=== PATIENT | female | born 1965 | race Caucasian/White ===

== ENCOUNTER 2022-08-17 09:25 | Outpatient (REF) | payer OTHER, SELFPAY ==
--- NOTE | ~2022-08-17 | XR_ITS ---
EXAMINATION: XR STANDING AP KNEES XR KNEE, LEFT CLINICAL INFORMATION: Knee pain COMPARISON: None TECHNIQUE: Standing AP view of both knees is performed. Additional lateral view and axial patella view of the left knee is also obtained. FINDINGS: Right: Normal bony mineralization. No joint narrowing, erosive change, or chondrocalcinosis. Left: There are osteoarthritic changes involving the medial lateral knee joint compartments, greater on medial side with joint narrowing and subchondral sclerosis and osteophytes. There is chondrocalcinosis menisci, possibly articular cartilage. There is mild secondary genu varus. Some buttressing is noted along the medial side of the proximal tibial metaphysis. Small suprapatellar effusion present. There is borderline narrowing lateral patellofemoral joint. No lateralization or tilting patella. XR/XR knee standing BI IMPRESSION: Right: unremarkable. Left knee: - Osteoarthritis medial and lateral knee joint compartments, genu varus. Small effusion. - Chondrocalcinosis menisci, possibly articular cartilage chondrocalcinosis. No erosive change. - No lateralization or tilting patella.
--- NOTE | ~2022-08-17 | XR_ITS ---
EXAMINATION: XR STANDING AP KNEES XR KNEE, LEFT CLINICAL INFORMATION: Knee pain COMPARISON: None TECHNIQUE: Standing AP view of both knees is performed. Additional lateral view and axial patella view of the left knee is also obtained. FINDINGS: Right: Normal bony mineralization. No joint narrowing, erosive change, or chondrocalcinosis. Left: There are osteoarthritic changes involving the medial lateral knee joint compartments, greater on medial side with joint narrowing and subchondral sclerosis and osteophytes. There is chondrocalcinosis menisci, possibly articular cartilage. There is mild secondary genu varus. Some buttressing is noted along the medial side of the proximal tibial metaphysis. Small suprapatellar effusion present. There is borderline narrowing lateral patellofemoral joint. No lateralization or tilting patella. XR/XR knee LT 2V IMPRESSION: Right: unremarkable. Left knee: - Osteoarthritis medial and lateral knee joint compartments, genu varus. Small effusion. - Chondrocalcinosis menisci, possibly articular cartilage chondrocalcinosis. No erosive change. - No lateralization or tilting patella.
== END 2022-08-17 09:26 | disposition home or self-care (01) ==
LOC: HO.HOSX 09:25
PROVIDERS: Visit Provider Orthopaedic Surgery
DX: M17.0 Bilateral primary osteoarthritis of knee (principal); M25.462 Effusion, left knee; Z98.890 Other specified postprocedural states
CPT/HCPCS: 20610; 73560; 73565; J1100

== ENCOUNTER 2023-10-28 08:43 | Outpatient (REF) | payer BC, SELFPAY ==
--- NOTE | ~2023-10-28 | XR_ITS ---
EXAMINATION: XR ELBOW, RIGHT CLINICAL INFORMATION: Pain COMPARISON: None available. TECHNIQUE: AP, lateral, and oblique views of the right elbow. FINDINGS: Triceps tendon enthesophyte which may be fractured, age indeterminate etiology. Soft tissue swelling along the dorsum of the elbow. No elbow effusion. No other acute fracture or dislocation. XR/XR elbow RT 2V IMPRESSION: 1. Triceps tendon enthesophyte which may be fractured, of age indeterminate etiology. 2. Soft tissue swelling along the dorsum of the elbow.
== END 2023-10-28 08:44 | disposition home or self-care (01) ==
LOC: HO.HOSX 08:43
PROVIDERS: Visit Provider Orthopaedic Surgery
DX: M77.11 Lateral epicondylitis, right elbow (principal); F41.1 Generalized anxiety disorder; C80.1 Malignant (primary) neoplasm, unspecified
CPT/HCPCS: 20550; 20605; 73070; J0665; J1100

== ENCOUNTER 2023-10-28 11:15 | Outpatient (AMB) | payer BC, SELFPAY ==
--- NOTE | 2023-10-28 11:21 | MHC.OFFVIS ---
Intake Visit Reasons: NewProb- RT elbow injury Intake Note: Imelda is a 58 year old right hand dominant female who presents today for a new problem visit with complaints of right elbow pain. Patient reports that she fell on concrete in May landing directly on the right elbow. She has had pain in the right elbow since the fall. She has pain intermittent pain that she can not identify a trigger for, the pain can range from a subtle ache to a sharp pain. She has had tennis elbow in the past. Allergies amoxicillin Adverse Reaction (Mild, Verified 08/17/22 11:09) Stomach Upset HPI HPI NewProb- RT elbow injury: Details: Imelda is a 58 year old right hand dominant female who presents today for a new problem visit with complaints of right elbow pain. Patient reports that she fell on concrete in May landing directly on the right elbow. She has had pain in the right elbow since the fall. She has pain intermittent pain that she can not identify a trigger for, the pain can range from a subtle ache to a sharp pain. She has had tennis elbow in the past. 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 Largely unremarkable elbow radiograph however there is a small ossicle over the lateral epicondyle consistent with possible prior trauma Assessment & Plan Assessment & Plan (1) Lateral epicondylitis, right elbow: Code(s): M77.11 - Lateral epicondylitis, right elbow Category: Medical Plan: I injected her right elbow. I recommend activity modification, counterforce bracing and occupational therapy. She is not sure she wants to undergo therapy at this time given the co-pay but she will take into consideration my recommendations. (2) Anxiety associated with cancer diagnosis: Code(s): F41.1 - Generalized anxiety disorder; C80.1 - Malignant (primary) neoplasm, unspecified Category: Medical Plan: Orders: Orders XR elbow RT 2V Today M25.529 - Pain in unspecified elbow Coding Level of Care Code Est Pt Level 4 (21370) Diagnoses Lateral epicondylitis, right elbow M77.11 Anxiety associated with cancer diagnosis F41.1; C80.1
== END 2023-10-28 12:27 | disposition home or self-care (01) ==
PROVIDERS: PCP Internal Medicine; Visit Provider Orthopaedic Surgery
DX: M77.11 Lateral epicondylitis, right elbow (principal); F41.1 Generalized anxiety disorder; C80.1 Malignant (primary) neoplasm, unspecified
CPT/HCPCS: 20605; 99214

== ENCOUNTER 2023-12-23 14:34 | Outpatient (AMB) | payer BC, SELFPAY ==
[2023-12-23 14:37] VITALS: BMI 24.3
--- NOTE | 2023-12-23 14:37 | A.OFFVIS_ITS ---
Vital Signs 12/23/23 14:37 Height 5 ft 8 in Weight 160 lb BMI 24.3 Intake Visit Reasons: Newprob-Left elbow pain-discuss concerns Intake Note: Imelda is a 58 year old right hand dominant female who presents today for a new problem visit with complaints of Left Elbow pain. She was last seen in October where her Right Elbow was injected. She thinks her left elbow pain was caused by overcompensating for her right elbow. Patient denies any recent injuries to the left elbow. Patient would like a steroid injection today. Allergies amoxicillin Adverse Reaction (Mild, Verified 12/23/23 14:49) Stomach Upset HPI HPI Newprob-Left elbow pain-discuss concerns: Details: Imelda is a 58 year old right hand dominant female who presents today for a new problem visit with complaints of Left Elbow pain. She was last seen in October where her Right Elbow was injected. She thinks her left elbow pain was caused by overcompensating for her right elbow. Patient denies any recent injuries to the left elbow. She descriobers pain with lifting and graspoing. The pain localizes to her lateral left elbow. [facility] Surgical History (Updated 10/28/23 @ 11:26 by Azeb Bhat CMA) Previous section Social History (Updated 10/28/23 @ 11:26 by Azeb Bhat CMA) Current occupational status: employed Current occupation: Certified Substance Abuse Counselor Physical Exam Vital Signs: BMI result Body Mass Index 24.3 Const General: no acute distress, alert and awake Orientation/consciousness: patient oriented x3 HEENT Head: Yes normocephalic and Yes atraumatic Eyes EOM: EOMs intact bilaterally Resp Effort & Inspection: normal respiratory effort and able to speak in complete sentences Cardio Jugular venous distension: no JVD Skin General skin exam: turgor normal Rashes: no rashes Neuro General: patient oriented x3 Extrem Other: Left elbow with ttp over lateral epicondyle and pain with resisted wrist extension Psych Appearance: grossly normal Affect: normal affect Attitude: cooperative Office Procedures Joint Injection/Aspiration Joint Injection/Aspiration Details: Injected 1 mL of Decadron and 3 mL 1% lidocaine and 3 mL of 0.25% Marcaine. Site was prepped using aseptic technique. Patient tolerated the procedure well. Primary Site: other (Left lateral epicondyle) Coding 20868 - Epicondyle Procedure code (CPT) selection complete Assessment & Plan Assessment & Plan (1) Left lateral epicondylitis: Code(s): M77.12 - Lateral epicondylitis, left elbow Category: Medical Plan: Left lateral epicondylitis. I injected her left lateral epicondyle and recommend activity modification. We are currently out of counter-force braces but when they are restocked we will contact her and fit her for one. Coding Level of Care Code Est Pt Level 3 (77002) Diagnoses Left lateral epicondylitis M77.12 CPT Codes Coding - Joint 2: 19654 - Epicondyle ([id number])
== END 2023-12-23 15:23 | disposition home or self-care (01) ==
PROVIDERS: PCP Internal Medicine; Visit Provider Orthopaedic Surgery
DX: M77.12 Lateral epicondylitis, left elbow (principal)
CPT/HCPCS: 20550; 99213

== ENCOUNTER → 2023-12-23 14:34 | Outpatient (BNVA) | payer BC, SELFPAY | PROVIDERS: PCP Internal Medicine; Visit Provider Orthopaedic Surgery | DX: M77.12 Lateral epicondylitis, left elbow (principal) | CPT/HCPCS: 20550; J0665; J1100 ==

== ENCOUNTER 2024-06-15 12:39 | Outpatient (AMB) | payer OTHER, SELFPAY ==
--- NOTE | 2024-06-15 12:45 | MHC.OFFVIS ---
Vital Signs 06/15/24 12:46 Height 5 ft 8 in Weight 160 lb BMI 24.3 Handedness Right Intake Visit Reasons: OV - Left Lateral Epicondylitis - Last Inj 12/23/23 Intake Note: Imelda is a 59 year old right hand dominant female who presents today for a follow up of her left shoulder pain. At her last visit on 12/23/23 the left lateral epicondyle was injected and given an Arm Band. Patient reports she did not find relief with her injection. States she was moving furniture the day before her injection and felt a pulling and tearing sensation in the left elbow and this is her main concern. She reports pain with extension. Allergies amoxicillin Adverse Reaction (Mild, Verified 06/15/24 12:47) Stomach Upset HPI HPI OV - Left Lateral Epicondylitis - Last Inj 12/23/23: Details: Imelda is a 59 year old right hand dominant female who presents today for a follow up of her left shoulder pain. At her last visit on 12/23/23 the left lateral epicondyle was injected and given an Arm Band. Patient reports she did not find relief with her injection. States she was moving furniture the day before her injection and felt a pulling and tearing sensation in the left elbow and this is her main concern. She reports pain with extension. She also has left knee pain with stairs and sometimes this bothers her when she has been gardening. She is not gardening this year yet but is a little concerned that it may start to bother her. She also has right lateral hip pain. He has pain over the greater trochanter. Not associated with groin pain. This is mostly bothers him at night. [facility] Surgical History (Updated 10/28/23 @ 11:26 by Azeb Bhat CMA) Previous section Social History (Updated 06/15/24 @ 12:47 by DEB Navarrete) Current occupational status: unemployed Physical Exam Vital Signs: BMI result Body Mass Index 24.3 Extrem Other: On exam she has minimal tenderness to palpation over lateral epicondyle but pain with resisted wrist and long finger extension Left knee with mild medial and anterior compartment tenderness but no effusion and full range of motion. Right hip with tenderness over the greater trochanter. Assessment & Plan Assessment & Plan (1) Left lateral epicondylitis: Code(s): M77.12 - Lateral epicondylitis, left elbow Category: Medical Plan: I recommend that she continue avoiding painful activities as she seems to be improving. I did order her a prescription for meloxicam. (2) Osteoarthritis of left knee: Code(s): M17.12 - Unilateral primary osteoarthritis, left knee Category: Medical Plan: No injection needed at this time but if it worsens that may be something to consider. (3) Greater trochanteric bursitis of right hip: Code(s): M70.61 - Trochanteric bursitis, right hip Category: Medical Plan: Explained the bursitis etiology to her and again, if this worsens, we may consider injections but no additional intervention warranted at this time. Medications: New meloxicam 7.5 mg PO DAILY 30 tabs 3RF Coding Level of Care Code Est Pt Level 3 (81349) Complex EM visit Add On G2211 Diagnoses Left lateral epicondylitis M77.12 Osteoarthritis of left knee M17.12 Greater trochanteric bursitis of right hip M70.61
[2024-06-15 12:46] VITALS: BMI 24.3
== END 2024-06-15 13:23 | disposition home or self-care (01) ==
LOC: HO.HOS 12:40
PROVIDERS: PCP Internal Medicine; Visit Provider Orthopaedic Surgery
DX: M77.12 Lateral epicondylitis, left elbow (principal); M17.12 Unilateral primary osteoarthritis, left knee; M70.61 Trochanteric bursitis, right hip
CPT/HCPCS: 99214